=== PATIENT | female | born 1990 | race Caucasian/White ===

== ENCOUNTER → 2022-03-27 10:41 | Outpatient (CLI) | payer OTHER, SELFPAY ==
--- NOTE | 2022-03-27 10:45 | XR_ITS ---
FINAL REPORT CLINICAL HISTORY: Left foot pain FINDINGS: LEFT FOOT: Three views of the left foot were obtained. There is a chronic fracture of the proximal 5th metatarsal. There is no acute fracture or dislocation. There is a small plantar calcaneal spur. The joint spaces are intact. There is no soft tissue abnormality. IMPRESSION: No acute bony abnormality. Reviewed, Interpreted and Dictated by El Smith III, MD Transcribed by Yudelka Guerra Authenticated and [facility]
--- NOTE | 2022-03-27 10:45 | XR_ITS ---
FINAL REPORT CLINICAL HISTORY: foot pain FINDINGS: RIGHT FOOT: Three views of the right foot were obtained. There is no acute fracture. There is a mild hallux valgus deformity. Mild degenerative changes are seen in the midfoot. Mild degenerative changes are seen at the tibiotalar joint. 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 There is lucency surrounding the screw of uncertain significance. Mild loosening is not excluded. IMPRESSION: Degenerative and postoperative changes with lucency surrounding the screw. Mild loosening is not excluded. Reviewed, Interpreted and Dictated by El Smith III, MD Transcribed by Yudelka Guerra Authenticated and [facility]
== END ==
PROVIDERS: PCP Family Medicine; Visit Provider Podiatrist
DX: M79.672 Pain in left foot (principal); M79.671 Pain in right foot
CPT/HCPCS: 73630

== ENCOUNTER → 2022-06-12 10:44 | Outpatient (CLI) | payer OTHER, SELFPAY ==
--- NOTE | 2022-06-12 10:48 | XR_ITS ---
FINAL REPORT CLINICAL HISTORY: foot pain COMPARISON: 03/27/2022 FINDINGS: Left foot Three views were obtained. There is no acute fracture or dislocation. There are mild hypertrophic changes at the posterior subtalar joint. There is healed fracture deformity at the base of the 5th metatarsal. No soft tissue abnormality is identified. IMPRESSION: Degenerative and chronic appearing findings. Reviewed, Interpreted and Dictated by Jordon Mata MD Transcribed by Nunu Dow Authenticated and [facility]
--- NOTE | 2022-06-12 10:48 | XR_ITS ---
FINAL REPORT CLINICAL HISTORY: foot pain COMPARISON: 03/27/2022 FINDINGS: Right foot Three views were obtained. Single orthopedic screw is seen securing the anterior subtalar joint. There are mild hypertrophic changes along the lateral intertarsal joints. Findings appear stable from previous. No soft tissue abnormality is identified. IMPRESSION: Postsurgical and degenerative changes, stable from previous. Reviewed, Interpreted and Dictated by Jordon Mata MD Transcribed by Nunu Dow Authenticated and [facility]
== END ==
PROVIDERS: PCP Family Medicine; Visit Provider Podiatrist
DX: M21.961 Unspecified acquired deformity of right lower leg (principal); M21.962 Unspecified acquired deformity of left lower leg
CPT/HCPCS: 73630